=== PATIENT | female | born 1985 | race Caucasian/White ===

== ENCOUNTER 2017-12-27 17:18 | Emergency (ER) | payer BC ==
[~2017-12-27] VITALS: Ht 160 cm; Wt 76.4 kg
[~2017-12-27 17:18] MED LIST: IBUPROFEN 800800 M1 PO; OSELB75 PO; TRAMADOL 50 MG50 MG PO; VENTOLIN HFA 1818 GM INH
[2017-12-27 19:06] VITALS: BP 120/68
== END 2017-12-27 19:06 | disposition home or self-care (01) ==
LOC: M.ERS 17:18
DX: R51 Headache (principal); Z98.890 Other specified postprocedural states; F17.210 Nicotine dependence, cigarettes, uncomplicated

== ENCOUNTER 2019-02-09 15:32 | Emergency (ER) | payer BC ==
[~2019-02-09] VITALS: Ht 160 cm; Wt 73.5 kg
[2019-02-09] MEDS ORDERED: BUSPIRONE HCL10 MG PO (15:38)
[2019-02-09] MEDS ORDERED: WELLBUTRIN 100100 MG PO (15:38)
[2019-02-09] MEDS ORDERED: PEPCID20 MG PO (16:32)
[2019-02-09 16:41] VITALS: BP 121/76
== END 2019-02-09 16:42 | disposition home or self-care (01) ==
LOC: M.ERS 15:32
DX: T18.108A Unspecified foreign body in esophagus causing other injury, initial encounter (principal); J02.9 Acute pharyngitis, unspecified; F17.200 Nicotine dependence, unspecified, uncomplicated; Y92.89 Other specified places as the place of occurrence of the external cause

== ENCOUNTER 2019-10-12 14:46 | Emergency (ER) | payer OTHER ==
[~2019-10-12] VITALS: Ht 160 cm; Wt 79.4 kg
[~2019-10-12 14:46] MED LIST changes: +BUSPIRONE HCL10 MG PO; +PEPCID20 MG PO; +WELLBUTRIN 100100 MG PO
[2019-10-12] MEDS ORDERED: NAPROSYN500 MG PO (16:35)
[2019-10-12] MEDS ORDERED: DIAZEPAM 5 MG5 M1 PO (16:35)
[2019-10-12] MEDS ORDERED: TYLENOL WITH CO1 TA1 PO (16:35)
[2019-10-12 16:59] VITALS: BP 133/82
== END 2019-10-12 17:00 | disposition home or self-care (01) ==
LOC: M.ERS 14:46
DX: S46.912A Strain of unspecified muscle, fascia and tendon at shoulder and upper arm level, left arm, initial encounter (principal); W22.8XXA Striking against or struck by other objects, initial encounter; Y93.89 Activity, other specified; Y92.89 Other specified places as the place of occurrence of the external cause; Y99.8 Other external cause status